=== PATIENT | male | born 1955 | race African-American/Black ===

== ENCOUNTER 2017-02-04 03:04 | Emergency (ER) | payer MEDICAID ==
[~2017-02-04] VITALS: Ht 198.1 cm; Wt 95.0 kg
[2017-02-04] MEDS ORDERED: IBUPROFEN 600MG TABLET PO ONE (04:30)
[2017-02-04 06:35] VITALS: BP 143/77
== END 2017-02-04 06:40 | disposition home or self-care (01) ==
LOC: ER 03:15
DX: S70.02XA Contusion of left hip, initial encounter (principal); F17.210 Nicotine dependence, cigarettes, uncomplicated; F10.10 Alcohol abuse, uncomplicated; Y90.9 Presence of alcohol in blood, level not specified; Y08.09XA Assault by strike by other specified type of sport equipment, initial encounter; Y92.488 Other paved roadways as the place of occurrence of the external cause
CPT/HCPCS: 99283

== ENCOUNTER 2019-03-07 11:09 | Emergency (ER) | payer MEDICAID ==
[~2019-03-07] VITALS: Ht 188 cm; Wt 97.0 kg
[2019-03-07] MEDS ORDERED: ALBUTEROL (0.083%) 2.5MG/3ML NEB HHN STA (11:36)
[2019-03-07] MEDS ORDERED: METHYLPREDNISOLONE SOD SUCC 125 MG/2 ML VIAL IV STA (11:36)
[2019-03-07 11:50] LABS: BASOPHILS % 0.4 % (0.0-2.0); EOSINOPHILS % 1.1 % (0.0-5.0); HEMATOCRIT. 38.6 % (42.0-52.0); HEMOGLOBIN. 12.6 g/dL (14.0-18.0); LYMPHOCYTES % 16.8 % (20.0-50.0); MEAN CORPUSCULAR VOLUME 92.1 fL (80.0-94.0); MONOCYTES % 10.3 % (2.0-8.0); NEUTROPHILS % 71.4 % (40.0-76.0); PLATELET 213 x1000/uL (130-400); RED BLOOD CELL COUNT 4.19 mill/uL (4.7-6.1); RED CELL DISTRIBUTION WIDTH 13.4 % (11.6-14.6)
[2019-03-07 11:53] LABS: CHLORIDE 107 mEq/L (98-107)
[2019-03-07 13:20] VITALS: BP 131/78
== END 2019-03-07 13:25 | disposition home or self-care (01) ==
LOC: ER 11:19
DX: J44.1 Chronic obstructive pulmonary disease with (acute) exacerbation (principal); F12.10 Cannabis abuse, uncomplicated
CPT/HCPCS: 36415; 71045; 80053; 85025; 93005; 94640; 96374; 99284; J2930; J7611